=== PATIENT | male | born 1975 | race Caucasian/White ===

== ENCOUNTER 2017-04-19 23:13 | Emergency (ER) | payer MEDICAID ==
[~2017-04-19] VITALS: Ht 180.3 cm; Wt 88.5 kg
[2017-04-19 23:30] VITALS: BP_SYST 94
[2017-04-20 00:09] VITALS: BP_SYST 94
== END 2017-04-20 00:09 ==
LOC: SED 23:13
DX: S50.312A Abrasion of left elbow, initial encounter (principal); S80.212A Abrasion, left knee, initial encounter; V09.9XXA Pedestrian injured in unspecified transport accident, initial encounter; Y93.89 Activity, other specified; Y92.410 Unspecified street and highway as the place of occurrence of the external cause; Y99.8 Other external cause status
CPT/HCPCS: 99283